=== PATIENT | male | born 1935 | race Caucasian/White ===

== ENCOUNTER 2017-10-09 10:43 | Day surgery (SDC) | payer MEDICARE, BC ==
[~2017-10-09 10:43] MED LIST: Bupivacaine 0.25%/EPINEPHrine 1:200,000 10 ML SDV INJECT ONE; Bupivacaine 25%/EPINEPHrine/PF 30 ML ONE; Clindamycin Phosphate in D5W 600 MG in Premix Bag 1 BAG IV ONE; Lactated Ringers 1,000 ML IV SCH; Lidocaine 2% 5 ML SDV ONE; Midazolam 1 MG/ML 2 ML SDV ONE; Ondansetron 4 MG/2 ML SDV ONE; Propofol 200 MG/20 ML SDV ONE; fentaNYL 100 MCG/2 ML SDV ONE
[2017-10-09] MEDS ORDERED: Clindamycin Phosphate in D5W 50 ML ONE (11:42)
[2017-10-09] MEDS ORDERED: Albuterol/Ipratropium 3.0-0.5 MG/3 ML Neb Soln NEB ONE (11:42)
[2017-10-09] MEDS ORDERED: Dexamethasone 4 MG/ML 5 ML MDV ONE (12:19)
--- NOTE | 2017-10-09 12:23 | PCM.PREANE ---
Preanesthetic Assessment - Anesthesia/Transfusion/Family Hx Anesthesia History: Prior Anesthesia Without Reaction Family History of Anesthesia Reaction: No Transfusion History: Prior Transfusion Without Reaction Intubation History: Unknown - Review of Systems General: No Symptoms Pulmonary: Wheezing Cardiovascular: No Symptoms Gastrointestinal: No Symptoms Neurological: No Symptoms Other: Reports: None - Physical Assessment O2 Sat by Pulse Oximetry: 94 Respiratory Rate: 20 Vital Signs: Last Vital Signs Temp 36.7 C 10/09/17 11:47 Pulse 82 10/09/17 11:47 Resp 20 10/09/17 11:47 BP 140/76 10/09/17 11:47 Pulse Ox 94 L 10/09/17 11:47 Height: 1.68 m Weight: 74.843 kg ASA Class: 3 Mental Status: Alert & Oriented x3 Airway Class: Mallampati = 2 Dentition: Reports: Dentures (upper and lower) Thyro-Mental Finger Breadths: 3 Mouth Opening Finger Breadths: 3 ROM/Head Extension: Limited/Partial Lungs: Wheezing, Other (SOB) Cardiovascular: Regular Rhythm - Allergies Allergies/Adverse Reactions: Allergies Allergy/AdvReac Type Severity Reaction Status Date / Time Penicillins Allergy Itching Verified 10/07/17 13:16 - Blood Blood Available: No - Anesthesia Plan Pre-Op Medication Ordered: None - Acknowledgements Anesthesia Type Planned: General Anesthesia Pt an Appropriate Candidate for the Planned Anesthesia: Yes Alternatives and Risks of Anesthesia Discussed w Pt/Guardian: Yes Pt/Guardian Understands and Agrees with Anesthesia Plan: Yes PreAnesthesia Questionnaire HEENT History: Reports: Hard of Hearing, Other (See Below) Other HEENT History: uses reading glasses, has chronic conjunctivitis, has upper and lower dentures, has bilateral hearing aides Cardiovascular History: Reports: CAD, High Cholesterol Respiratory History: Reports: COPD, SOB Gastrointestinal History: Reports: GERD Musculoskeletal History: Reports: Fracture, Osteoarthritis (left hip) Other Musculoskeletal History: hx of fx left ankle Neurological History: Reports: Migraines Other Neuro History: hx of cluster headaches- none for 10 years Hematologic History: Reports: Blood Transfusion(s) - Past Surgical History Head Surgeries/Procedures: Reports: None Cardiovascular Surgical History: Reports: Coronary Artery Bypass Other Cardiovascular Surgeries/Procedures: CABG x5 vessels-"many many years ago " Neurological Surgical History: Reports: Laminectomy, Lumbar Spine - SUBSTANCE USE Smoking Status *Q: Current Every Day Smoker Tobacco Use Within Last Twelve Months: Cigarettes Days Per Week of Alcohol Use: 0 Recreational Drug Use History: No - HOME MEDS Home Medications: Home Meds Clotrimazole/Betamethasone Dip [Lotrisone Cream] 1 dose TOP BID PRN 05/20/14 [ History] Omeprazole [priLOSEC OTC] 20 mg PO DAILY 05/20/14 [History] Simvastatin [Zocor] 40 mg PO BEDTIME 05/20/14 [History] Aspirin/Calcium Carbonate/Mag [Aspirin Buffered] 325 mg PO DAILY 10/07/17 [ History] Erythromycin Base [Erythromycin 0.5% Ophth Oint] 1 dose TOP BEDTIME 10/07/17 [ History] - CURRENT (IN HOUSE) MEDS Current Meds: Current Medications Lactated Ringer's (Ringers, Lactated) 1,000 mls @ 125 mls/hr IV ASDIRECTED [facility] Last Admin: 10/09/17 11:49 Dose: 125 mls/hr Discontinued Medications Albuterol/Ipratropium (Duoneb 3.0-0.5 Mg/3 Ml) 3 ml NEB ONETIME ONE Stop: 10/09/17 11:43 Last Admin: 10/09/17 11:53 Dose: 3 ml Bupivacaine HCl/Epinephrine Bitart (Marcaine 0.25%/Epinephrine 1:200,000) 10 ml INJECT ONETIME ONE Stop: 10/09/17 08:01 Dexamethasone (Dexamethasone) Confirm Administered Dose 20 mg .ROUTE .STK-MED ONE Stop: 10/09/17 12:20 Fentanyl (Sublimaze) Confirm Administered Dose 100 mcg .ROUTE .STK-MED ONE Stop: 10/09/17 07:24 Clindamycin Phosphate 600 mg/ (Premix) 50 mls @ 150 mls/hr IV ONETIME ONE Stop: 10/09/17 08:19 Last Admin: 10/09/17 11:49 Dose: 150 mls/hr Bupivacaine HCl/Epinephrine Bitart (Sensorc Mpf 0.25%-Epi 1:[id number]) Confirm Administered Dose 30 mls @ as directed .ROUTE .STK-MED ONE Stop: 10/09/17 07:30 Clindamycin Phosphate (Cleocin In D5w) Confirm Administered Dose 50 mls @ as directed .ROUTE .STK-MED ONE Stop: 10/09/17 11:43 Lidocaine (Xylocaine-Mpf 2%) Confirm Administered Dose 5 ml .ROUTE .STK-MED ONE Stop: 10/09/17 07:25 Midazolam HCl (Versed 1 Mg/Ml) Confirm Administered Dose 2 mg .ROUTE .STK-MED ONE Stop: 10/09/17 07:25 Ondansetron HCl (Zofran) Confirm Administered Dose 4 mg .ROUTE .STK-MED ONE Stop: 10/09/17 07:25 Propofol (Diprivan 20 Ml) Confirm Administered Dose 200 mg .ROUTE .STK-MED ONE Stop: 10/09/17 07:24
[2017-10-09] MEDS ORDERED: fentaNYL 100 MCG/2 ML SDV ONE (13:17)
[2017-10-09 14:33] VITALS: BP 114/71
--- NOTE | 2017-10-09 14:41 | PCM.OPNOTE ---
- General Post-Op/Procedure Note Date of Surgery/Procedure: 10/09/17 Operative Procedure(s): excision of left nose lesion, benign 2cm with local transposition flap closure 2x1cm. exicison of right posterior ear cyst with 2cm simple closure Pre Op Diagnosis: left nose and right postauricular lesions Post-Op Diagnosis: Same Anesthesia Technique: General LMA, Local Primary Surgeon: Carey Sauer Storage Garage Manager: Laura Dent Role of Storage Garage Manager: retraction, prepping, draping and closure assistance. Complications: None Condition: Good Free Text/Narrative:: Intake & Output 10/08/17 10/09/17 10/09/17 23:59 07:59 15:59 Intake Total 800 Balance 800
--- NOTE | 2017-10-09 15:08 | PCM48HPAN ---
Post Anesthesia Note - EVALUATION WITHIN 48HRS OF ANESTHETIC Vital Signs in Normal Range: Yes Patient Participated in Evaluation: Yes Respiratory Function Stable: Yes Airway Patent: Yes Cardiovascular Function Stable: Yes Hydration Status Stable: Yes Pain Control Satisfactory: Yes Nausea and Vomiting Control Satisfactory: Yes Mental Status Recovered: Yes Resp Rate: 15 - COMMENTS/OBSERVATIONS Free Text/Narrative:: no anesthesia problems
--- NOTE | 2017-10-09 16:49 | OR ---
SURGEON: JOSE SHERIDAN MD DATE OF PROCEDURE: 10/09/2017 PREOPERATIVE DIAGNOSIS: Left nose and right postauricular lesion. POSTOPERATIVE DIAGNOSIS: Left nose and right postauricular lesion. PROCEDURES: 1. Excision of left nose lesion, benign 2 cm with local transposition flap closure of 2 x 1 cm. 2. Excision of right posterior ear cyst with 2 cm simple closure. MARKETING EXECUTIVE: PREETHI Smith REASON FOR MARKETING EXECUTIVE: Retraction, prepping, draping, and closure assistance. ANESTHESIA: General LMA local. INDICATIONS: Mr. Humphrey is an 82-year-old gentleman with a lesion on the left nose and right postauricular area. The postauricular lesion appears to be cystic in nature and has some atypical features. The left nose lesion appears to be actinic damage in a setting of an underlying either inflammatory process versus underlying skin cancer involvement. We discussed risks and benefits of excision with him and he is in agreement to proceed. Risks were including, but not limited to, bleeding, infection, damage to underlying or overlying structures, possible need for future interventions, possible scarring. PROCEDURE IN DETAIL: After informed consent was obtained and placed on the chart, the patient was brought to the operating theater and laid in the supine position. After adequate general LMA anesthesia was obtained, the area was prepped and draped, a time-out was completed to confirm side and site. Attention was then paid to excision of both lesions. The left nose alar lesion was excised for a total length of 2 cm x 1 cm and meticulous hemostasis was obtained. A marking stitch was placed at 12 o'clock and this was sent for frozen section. Frozen sections returned as likely benign actinic keratosis in an underlying inflammatory cyst. Meticulous hemostasis was obtained. Local transposition flap was designed for the nasolabial fold area measuring 2 x 1 cm. This was then elevated, transposed into place and secured in place using deep 4- 0 Monocryl stitches and a running 5-0 Prolene for the skin. Once secured in place, it was dressed with bacitracin. Attention was then paid to the right posterior ear lesion and this was excised in an elliptical fashion for a total of 2 x 0.7 cm and was meticulously hemostased and sent for pathology. The wound was then closed using deep 4-0 Monocryl stitch and a running 5-0 chromic for the skin. The patient tolerated this well. All counts and needles were correct at the end of the case. This was also dressed with bacitracin. FOLLOWUP INSTRUCTIONS: The patient tolerated the procedure well. All counts, needles were correct at the end of the case. He will follow up with us in clinic in approximately 1 week, sooner if any problems, questions, or concerns. [id number] medications for pain control if needed. HEGGTFIDE / CARLOS /[id number]
== END 2017-10-09 14:55 | disposition home or self-care (01) ==
LOC: MW.SDS 10:43
PROVIDERS: ATTEND Plastic Surgery
DX: L73.8 Other specified follicular disorders (principal); I25.10 Atherosclerotic heart disease of native coronary artery without angina pectoris; E78.00 Pure hypercholesterolemia, unspecified; J44.9 Chronic obstructive pulmonary disease, unspecified; K21.9 Gastro-esophageal reflux disease without esophagitis; Z95.1 Presence of aortocoronary bypass graft; Z98.890 Other specified postprocedural states; Z79.899 Other long term (current) drug therapy
CPT/HCPCS: 11442; 14060; 88305; 88331; 94640; J1100; J2405; J3010; J7120; 00300; J2250; J2704

== ENCOUNTER 2018-07-21 07:29 | Day surgery (SDC) | payer MEDICARE, BC ==
[2018-07-21] MEDS ORDERED: Lidocaine 2% 5 ML SDV ONE (07:43)
[2018-07-21] MEDS ORDERED: fentaNYL 100 MCG/2 ML SDV ONE (07:44)
[2018-07-21] MEDS ORDERED: Propofol 200 MG/20 ML SDV ONE (07:44)
[2018-07-21] MEDS ORDERED: Tetracaine HCl/PF 0.5% 4 ML Bottle ONE (07:48)
[2018-07-21] MEDS ORDERED: Dexamethasone/Tobramycin 0.1-0.3% Ophth Oint 3.5 GM Tube ONE (07:48)
[2018-07-21] MEDS ORDERED: Bupivacaine 25%/EPINEPHrine/PF 30 ML ONE (07:48)
[2018-07-21] MEDS ORDERED: Clindamycin Phosphate in D5W 600 MG in Premix Bag 1 BAG IV ONE ×2 (08:00)
[2018-07-21] MEDS ORDERED: traMADol 50 MG Tab PO PRN (08:00)
[2018-07-21] MEDS ORDERED: Bupivacaine 0.25%/EPINEPHrine 1:200,000 10 ML SDV INJECT ONE (08:00)
[2018-07-21] MEDS ORDERED: Lactated Ringers 1,000 ML IV SCH (08:00)
[2018-07-21] MEDS ORDERED: Dexamethasone/Tobramycin 0.1-0.3% Ophth Oint 3.5 GM Tube EYEBOTH SCH (08:00)
[2018-07-21] MEDS ORDERED: Albuterol 0.083% 2.5 MG/3 ML Neb Soln ONE (08:27)
[2018-07-21] MEDS ORDERED: Albuterol 0.083% 2.5 MG/3 ML Neb Soln NEB SCH (08:30)
--- NOTE | 2018-07-21 08:30 | PCM.PREANE ---
Preanesthetic Assessment - Procedure Proposed Procedure: bilateral blepharoplasties - Anesthesia/Transfusion/Family Hx Anesthesia History: Prior Anesthesia Without Reaction (back surgeries x 2, CABG- 5 vessels in z276--XM without problems.) Family History of Anesthesia Reaction: No Transfusion History: Prior Transfusion Without Reaction (CABG 1990) Intubation History: Unknown - Review of Systems Pulmonary: Other (copd from smoking) Cardiovascular: Other (increased cholesterol. History of CAD--CABG in l991 for "fatigue" with excellent results. No chest pain, no palpitations, no fainting or dizzy spells, per patient.) Gastrointestinal: Other (GERD at night. Takes prilosec which resolves all symptoms durng the day) Neurological: Headache (history of migraine and cluster headaches. Hard of Hearing.) Other: Reports: None (Daily ETOH, chronic conjunctivitis, DJD) - Physical Assessment NPO Status Date: 07/21/18 NPO Status Time: 00:00 Pulse: 60 O2 Sat by Pulse Oximetry: 97 Respiratory Rate: 22 Blood Pressure: 134/61 Temperature: 97.2 C Height: 1.68 m Weight: 77.564 kg ASA Class: 3 Mental Status: Alert & Oriented x3 Airway Class: Mallampati = 1 Dentition: Reports: Dentures (upper and lower dentures) Thyro-Mental Finger Breadths: 2 Mouth Opening Finger Breadths: 3 ROM/Head Extension: Limited/Partial Lungs: Decreased Breath Sounds Cardiovascular: Regular Rate, Regular Rhythm, No Murmurs, Irregular Rhythm ( irregular rhythm. EKG tracing at bedside monitor shows NSR with either PVCs or PACs-12 lead EKG ordered now.l) - Lab Values: none - Imaging/EKG Impressions: 12 lead EKG ordered now: NSR with PVCs, Left bundle branch block, flat/biphasic T waves most leads (partly due to LBBB) - Allergies Allergies/Adverse Reactions: Allergies Allergy/AdvReac Type Severity Reaction Status Date / Time Penicillins Allergy Itching Verified 07/19/18 17:16 - Blood Blood Available: No Product(s) Available: None - Anesthesia Plan Pre-Op Medication Ordered: None - Acknowledgements Anesthesia Type Planned: MAC (pre op albuterol neb ordered and pre op EKG ordered. No blood work.) Pt an Appropriate Candidate for the Planned Anesthesia: Yes Alternatives and Risks of Anesthesia Discussed w Pt/Guardian: Yes Pt/Guardian Understands and Agrees with Anesthesia Plan: Yes PreAnesthesia Questionnaire HEENT History: Reports: Cataract, Hard of Hearing, Other (See Below) Other HEENT History: uses reading glasses, has chronic conjunctivitis, has upper and lower dentures, has bilateral hearing aides Cardiovascular History: Reports: CAD, High Cholesterol Respiratory History: Reports: COPD, SOB Other Respiratory History: does not use inhalers for COPD Gastrointestinal History: Reports: GERD Genitourinary History: Reports: None Musculoskeletal History: Reports: Fracture, Osteoarthritis Other Musculoskeletal History: hx of fx left ankle Neurological History: Reports: Migraines Other Neuro History: hx of cluster headaches- none for 10 years Psychiatric History: Reports: None Endocrine/Metabolic History: Reports: None Hematologic History: Reports: Blood Transfusion(s) Immunologic History: Reports: None Oncologic (Cancer) History: Reports: None Dermatologic History: Reports: Other (See Below) Other Dermatologic History: has "jock itch" - Past Surgical History Head Surgeries/Procedures: Reports: None HEENT Surgical History: Reports: Cataract Surgery Cardiovascular Surgical History: Reports: Coronary Artery Bypass Other Cardiovascular Surgeries/Procedures: CABG x5 vessels-"many many years ago " Neurological Surgical History: Reports: Laminectomy, Lumbar Spine - SUBSTANCE USE Smoking Status *Q: Current Every Day Smoker Tobacco Use Within Last Twelve Months: Cigarettes Days Per Week of Alcohol Use: 7 Number of Drinks Per Day: 2 Total Drinks Per Week: 14 Recreational Drug Use History: No - HOME MEDS Home Medications: Home Meds Clotrimazole/Betamethasone Dip [Lotrisone Cream] 1 dose TOP BID PRN 05/20/14 [ History] Omeprazole [priLOSEC OTC] 20 mg PO DAILY 05/20/14 [History] Simvastatin [Zocor] 40 mg PO BEDTIME 05/20/14 [History] Aspirin/Calcium Carbonate/Mag [Aspirin Buffered] 325 mg PO DAILY 10/07/17 [ History] - CURRENT (IN HOUSE) MEDS Current Meds: Current Medications Albuterol (Proventil Neb Soln) 2.5 mg NEB .ONCE JAMIE Lactated Ringer's (Ringers, Lactated) 1,000 mls @ 125 mls/hr IV ASDIRECTED JAMIE Tobramycin/Dexamethasone (Tobradex Ophth Oint) 1 gm EYEBOTH Q4H JAMIE Tramadol HCl (Ultram) 50 mg PO Q4H PRN PRN Reason: Pain Discontinued Medications Bupivacaine HCl/Epinephrine Bitart (Marcaine 0.25%/Epinephrine 1:200,000) 10 ml INJECT ONETIME ONE Stop: 07/21/18 08:01 Fentanyl (Sublimaze) Confirm Administered Dose 100 mcg .ROUTE .STK-MED ONE Stop: 07/21/18 07:45 Clindamycin Phosphate 600 mg/ (Premix) 50 mls @ 150 mls/hr IV ONETIME ONE Stop: 07/21/18 08:19 Bupivacaine HCl/Epinephrine Bitart (Sensorc Mpf 0.25%-Epi 1:[id number]) Confirm Administered Dose 30 mls @ as directed .ROUTE .STK-MED ONE Stop: 07/21/18 07:49 Lidocaine (Xylocaine-Mpf 2%) Confirm Administered Dose 5 ml .ROUTE .STK-MED ONE Stop: 07/21/18 07:44 Propofol (Diprivan 20 Ml) Confirm Administered Dose 400 mg .ROUTE .STK-MED ONE Stop: 07/21/18 07:45 Tetracaine HCl (Tetracaine 0.5% Steri-Unit Archana) Confirm Administered Dose 4 ml .ROUTE .STK-MED ONE Stop: 07/21/18 07:49 Tobramycin/Dexamethasone (Tobradex Ophth Oint) Confirm Administered Dose 3.5 gm .ROUTE .STK-MED ONE Stop: 07/21/18 07:49
--- NOTE | 2018-07-21 11:35 | PCM.POSTAN ---
POST ANESTHESIA ASSESSMENT - MENTAL STATUS Mental Status: Alert, Oriented - VITAL SIGNS Pulse Rate: 63 SaO2: 96 Resp Rate: 20 Blood Pressure: 125/61 - RESPIRATORY Respiratory Status: Respiratory Rate WNL, Airway Patent, O2 Saturation Stable - CARDIOVASCULAR CV Status: Pulse Rate WNL, Blood Pressure Stable - GASTROINTESTINAL GI Status: No Symptoms - PAIN Pain Score: 0 - POST OP HYDRATION Hydration Status: Adequate & Stable - OBSERVATIONS Free Text/Narrative:: patient doing very well. Had MAC for blephs. EKG intraop was NSR. No respiratory or cardiac issues
--- NOTE | 2018-07-21 11:38 | PCM48HPAN ---
Post Anesthesia Note - EVALUATION WITHIN 48HRS OF ANESTHETIC Vital Signs in Normal Range: Yes Patient Participated in Evaluation: Yes Respiratory Function Stable: Yes Airway Patent: Yes Cardiovascular Function Stable: Yes Hydration Status Stable: Yes Pain Control Satisfactory: Yes Nausea and Vomiting Control Satisfactory: Yes Pulse Rate: 63 SaO2: 95 Resp Rate: 20 Temperature: 97.2 C Blood Pressure: 125/61 - COMMENTS/OBSERVATIONS Free Text/Narrative:: doing very well. Eating and drinking in Phase II. Son has been called to bring him home. No complaints regarding breathing or dizzziness or chest pain or palpitations etc.
[2018-07-21 13:14] VITALS: BP 130/61
--- NOTE | 2018-07-27 08:15 | PCM.OPNOTE ---
- General Post-Op/Procedure Note Date of Surgery/Procedure: 07/21/18 Operative Procedure(s): external levator advancement for bilateral upper eyelid ptosis Pre Op Diagnosis: bilateral upper eyelid ptosis obstructing vision Post-Op Diagnosis: Same Anesthesia Technique: Local, MAC Primary Surgeon: Carey Sauer Crutch Maker: Laura Dent Complications: None Condition: Good Free Text/Narrative:: [id number]
--- NOTE | 2018-07-28 07:20 | OR ---
SURGEON: JOSE SHERIDAN MD DATE OF PROCEDURE: 07/21/2018 PREOPERATIVE DIAGNOSIS: Bilateral upper eyelid ptosis obstructing vision. POSTOPERATIVE DIAGNOSIS: Bilateral upper eyelid ptosis obstructing vision. PROCEDURE: External levator advancement for bilateral upper eyelid ptosis. JEWEL FLAT SURFACER: PREETHI Smith REASON FOR AND ROLE OF JEWEL FLAT SURFACER: Retraction, prepping, draping, positioning and closure assistance. INDICATIONS: Mr. Humphrey is an 82-year-old gentleman seen today for bilateral upper eyelid ptosis that is obstructing his vision. He has significant compromise of daily function. Risks and benefits were discussed with him including, but not limited to, bleeding, infection, damage to the overlying and underlying structures, possible need for future interventions, possible scarring. PROCEDURE IN DETAIL: After informed consent was obtained and placed on the chart, the patient was brought to the operating theater and laid in supine position. After adequate local MAC anesthesia was obtained, the area was marked and prepped and draped in normal fashion. Local anesthesia was infiltrated into the area for meticulous hemostasis as well as pain control. Once adequately marked and anesthetized, attention was then paid to excision of the excess upper eyelid skin in an elliptical fashion. Meticulous hemostasis was obtained of the underlying musculature, and then dissection was carried through the musculature until location of the levator aponeurosis. Once adequately located, this was dissected and the superior tarsus was also dissected and located. The levator aponeurosis was advanced approximately 1 cm on bilateral upper eyelids and sutured in place using 4-0 clear Prolene suture to the superior tarsus. Care was taken to make sure the bite through the tarsus did not go through and through and with partial thickness. Once this was completed, the conjunctiva was evaluated to be intact without suture puncture. Once this was completed, attention was then paid to meticulous hemostasis. The muscle layer was then closed with a running 4-0 Monocryl and the skin was then closed with a single deep Monocryl and a running 6-0 Prolene for the skin. These were Steri-Stripped in place. The symmetry procedure was completed on the other side and corneal protectors were used at all times with TobraDex ointment for lubrication and to prevent irritation of the eye. Tetracaine was used for anesthesia of the eye prior to placement. The corneal protectors were removed at the end of the case and the ends of the sutures were Steri-Stripped in place. The patient tolerated this well and all counts and needles were correct at the end of the case. The wound was dressed with TobraDex ointment. FOLLOWUP INSTRUCTIONS: The patient will see us in clinic in approximately 1 week, sooner if any problems, questions, or concerns. Excellent symmetry at the end of the case. He was given a prescription for pain control. HEGGTHE / CARLOS /[id number]
== END 2018-07-21 12:00 | disposition home or self-care (01) ==
LOC: MW.SDS 07:29
PROVIDERS: ATTEND Plastic Surgery
DX: H02.403 Unspecified ptosis of bilateral eyelids (principal); J44.9 Chronic obstructive pulmonary disease, unspecified; F17.210 Nicotine dependence, cigarettes, uncomplicated; K21.9 Gastro-esophageal reflux disease without esophagitis; I25.10 Atherosclerotic heart disease of native coronary artery without angina pectoris; E78.00 Pure hypercholesterolemia, unspecified; Z79.82 Long term (current) use of aspirin; Z79.899 Other long term (current) drug therapy; Z95.1 Presence of aortocoronary bypass graft; Z88.0 Allergy status to penicillin
CPT/HCPCS: 67904; 93005; 94640; A9270; J2704; J3010; J3490; J7120; 00103

== ENCOUNTER 2021-05-10 10:31 | Inpatient (IN) | payer MEDICARE, BC ==
[2021-05-10] MEDS ORDERED: Sodium Chloride 0.9% 10 ML Syringe FLUSH PRN (10:46)
[2021-05-10] MEDS ORDERED: Sodium Chloride 0.9% 2.5 ML Syringe FLUSH PRN (10:46)
[2021-05-10] MEDS ORDERED: methylPREDNISolone Sodium Succinate 125 MG/2 ML SDV IVPUSH ONE (10:47)
[2021-05-10] MEDS ORDERED: Albuterol/Ipratropium 3.0-0.5 MG/3 ML Neb Soln NEB ONE ×2 (10:48→21:00)
[2021-05-10] MEDS ORDERED: Levofloxacin/Dextrose 5%-Water 500 MG in Premix Bag 1 BAG IV ONE (10:48)
--- NOTE | 2021-05-10 10:59 | EDM.PDOC ---
ED HPI GENERAL MEDICAL PROBLEM - General Chief Complaint: Respiratory Problem Stated Complaint: SOB Time Seen by Provider: 05/10/21 10:42 - History of Present Illness INITIAL COMMENTS - FREE TEXT/NARRATIVE: 85-year-old male history of COPD presents to the emergency department complaining of shortness of breath. No chest pain. No history of blood clots. Patient is Covid vaccinated. No other medical information available to secondary to patient's clinical condition - Related Data Allergies Allergy/AdvReac Type Severity Reaction Status Date / Time Penicillins Allergy Itching Verified 05/10/21 10:47 Home Meds: Home Meds Clotrimazole/Betamethasone Dip [Lotrisone Cream] 1 dose TOP BID PRN 05/20/14 [History] Omeprazole [priLOSEC OTC] 20 mg PO DAILY 05/20/14 [History] Simvastatin [Zocor] 40 mg PO BEDTIME 05/20/14 [History] Aspirin/Calcium Carbonate/Mag [Aspirin Buffered] 325 mg PO DAILY 10/07/17 [History] Dexamethasone/Tobramycin [Tobradex Ophth Oint] 1 gm EYEBOTH Q4H tube 07/21/18 [Rx] traMADol [Ultram] 50 mg PO Q4H PRN #30 tablet 07/21/18 [Rx] Past Medical History HEENT History: Reports: Cataract, Hard of Hearing, Other (See Below) Other HEENT History: uses reading glasses, has chronic conjunctivitis, has upper and lower dentures, has bilateral hearing aides Cardiovascular History: Reports: CAD, High Cholesterol Respiratory History: Reports: COPD, SOB Other Respiratory History: does not use inhalers for COPD Gastrointestinal History: Reports: GERD Genitourinary History: Reports: None Musculoskeletal History: Reports: Fracture, Osteoarthritis Other Musculoskeletal History: hx of fx left ankle Neurological History: Reports: Migraines Other Neuro History: hx of cluster headaches- none for 10 years Psychiatric History: Reports: None Endocrine/Metabolic History: Reports: None Hematologic History: Reports: Blood Transfusion(s) Immunologic History: Reports: None Oncologic (Cancer) History: Reports: None Dermatologic History: Reports: None Other Dermatologic History: has "jock itch" - Infectious Disease History Infectious Disease History: Reports: Chicken Pox, Measles - Past Surgical History Head Surgeries/Procedures: Reports: None HEENT Surgical History: Reports: Cataract Surgery Cardiovascular Surgical History: Reports: Coronary Artery Bypass Other Cardiovascular Surgeries/Procedures: CABG x5 vessels-"many many years ago" GI Surgical History: Reports: None Neurological Surgical History: Reports: Laminectomy, Lumbar Spine Social & Family History - Family History Family Medical History: No Pertinent Family History - Tobacco Use Tobacco Use Status *Q: Current Every Day Tobacco User Years of Tobacco use: 70 Packs/Tins Daily: 1 - Caffeine Use Caffeine Use: Reports: Coffee - Recreational Drug Use Recreational Drug Use: No ED ROS GENERAL - Review of Systems Review Of Systems: Unable To Obtain Reason Not Obtained: clinical condition ED EXAM, GENERAL - Physical Exam Exam: See Below Free Text/Narrative:: CONSTITUTIONAL: Appearing. Moderate distress SKIN: Warm, dry, and intact without rash HENT: Normocephalic, atraumatic, PULMONARY: Air exchange. Bilateral wheeze CARDIOVASCULAR: regular rate, No murmur, rubs, or gallops GASTROINTESTINAL: soft, nondistended, nontender NEUROLOGIC: normal speech, II-XII intact. light touch/5/5 power equal and symmetric in upper and lower extremities without deficit MUSCULOSKELETAL: no gross deformities, atraumatic. No lower extremity edema PSYCHIATRIC: normal mood and affect #1 Interpretation Time: 10:39 EKG Interpretation Comments: 86, normal sinus rhythm with left bundle branch block. Negative modified sgarbossa criteria. Intermittent PVC Course - Vital Signs Text/Narrative:: differential diagnosis: PE, pneumonia, COPD, covid, CHF, other Patient presents to the emergency department with shortness of breath. Patient with significant difficulty breathing and hypoxia but improved with breathing treatment and steroids in the emergency department. CT scan pending to elucidate mass and rule out PE. Patient does have a left facial droop but this very well could be longstanding. The patient clearly is here for shortness of breath he states that the rest of his neurologic exam is nonfocal. Head CT is negative and there could be consideration of MRI during inpatient hospitalization but otherwise breathing treatments steroids and respiratory s upport as needed 11:10am called to the bedside because the nurse noticed a facial droop on the left when she was starting the breathing treatments. There is a facial droop on the left. Patient does not complain of headache. Otherwise patient is able to talk and describe context at this point without confusion. Light touch 5 out of 5 power bilateral equal and symmetric in upper and lower extremity throughout without deficit. There is no neglect, patient understands where he is at is alert and oriented and just left-sided facial droop is all that is seen. I did call the contact which is I believe, the patient's son. He states he does not know of any left-sided facial droop and last time he saw the patient was 9 or 10 months ago. The patient himself is not aware of any facial droop when he is here for complaints of shortness of breath Last Recorded V/S: Last Vital Signs Temp 36.4 C 05/10/21 10:33 Pulse 86 05/10/21 12:42 Resp 26 H 05/10/21 10:33 BP 122/53 L 05/10/21 12:42 Pulse Ox 94 L 05/10/21 12:42 - Orders/Labs/Meds Orders: Active Orders 24 hr Category Date Time Status Cardiac Monitoring [RC] . DIRECTED Care 05/10/21 10:46 Active Pulse Oximetry [RC] ASDIRECTED Care 05/10/21 10:46 Active RT Aerosol Therapy [RC] ASDIRECTED Care 05/10/21 10:48 Active Ang Chest [CT] Stat Exams 05/10/21 12:10 Ordered BLOOD GAS ARTERIAL [BG] Stat Lab 05/10/21 10:46 Ordered CULTURE BLOOD [BC] Stat Lab 05/10/21 12:20 Results CULTURE BLOOD [BC] Stat Lab 05/10/21 12:37 Results CULTURE URINE [MREF] Stat Lab 05/10/21 13:10 Received Sodium Chloride 0.9% [Saline Flush] Med 05/10/21 10:46 Active 10 ml FLUSH ASDIRECTED PRN Sodium Chloride 0.9% [Saline Flush] Med 05/10/21 10:46 Active 2.5 ml FLUSH ASDIRECTED PRN Blood Culture x2 Reflex Set [OM.PC] Stat Oth 05/10/21 10:46 Ordered Saline Lock Insert [OM.PC] Stat Oth 05/10/21 10:46 Ordered Medication Orders Sodium Chloride (Sodium Chloride 0.9% 10 Ml Syringe) 10 ml FLUSH ASDIRECTED PRN PRN Reason: Keep Vein Open Last Admin: 05/10/21 10:59 Dose: 10 ml Documented by: SEWATIF Sodium Chloride (Sodium Chloride 0.9% 2.5 Ml Syringe) 2.5 ml FLUSH ASDIRECTED PRN PRN Reason: Keep Vein Open Last Admin: 05/10/21 10:58 Dose: 2.5 ml Documented by: EMILIE Labs: Laboratory Tests 05/10/21 05/10/21 05/10/21 Range/Units 10:43 10:50 12:20 WBC 12.35 H (4.0-11.0) K/uL RBC 5.55 (4.50-5.90) M/uL Hgb 16.4 (13.0-17.0) g/dL Hct 52.6 H (38.0-50.0) % MCV 94.8 (80.0-98.0) fL MCH 29.5 (27.0-32.0) pg MCHC 31.2 (31.0-37.0) g/dL RDW Std Deviation 51.8 (28.0-62.0) fl RDW Coeff of Saú[place] 15 (11.0-15.0) % Plt Count 308 (150-400) K/uL MPV 11.10 (7.40-12.00) fL Neut % (Auto) 72.2 (48.0-80.0) % Lymph % (Auto) 18.9 (16.0-40.0) % [place] % (Auto) 8.1 (0.0-15.0) % Eos % (Auto) 0.6 (0.0-7.0) % Baso % (Auto) 0.2 (0.0-1.5) % Neut # (Auto) 8.9 H (1.4-5.7) K/uL Lymph # (Auto) 2.3 (0.6-2.4) K/uL [place] # (Auto) 1.0 H (0.0-0.8) K/uL Eos # (Auto) 0.1 (0.0-0.7) K/uL Baso # (Auto) 0.0 (0.0-0.1) K/uL Nucleated RBC % 0.0 /100WBC Nucleated RBCs # 0 K/uL INR Sodium (136-148) mmol/L Potassium (3.5-5.1) mmol/L Chloride (98-107) mmol/L Carbon Dioxide (21.0-32.0) mmol/L BUN (7.0-18.0) mg/dL Creatinine (0.8-1.3) mg/dL Est Cr Clr Drug Dosing mL/min Estimated GFR (MDRD) ml/min Glucose (74-106) mg/dL Lactic Acid 1.5 (0.4-2.0) mmol/L Calcium (8.5-10.1) mg/dL Total Bilirubin (0.2-1.0) mg/dL AST (15-37) IU/L ALT (14-63) IU/L Alkaline Phosphatase (46-116) U/L Troponin I (0.000-0.056) ng/mL B-Natriuretic Peptide (<100) PG/ML Total Protein (6.4-8.2) g/dL Albumin (3.4-5.0) g/dL Globulin (2.6-4.0) g/dL Albumin/Globulin Ratio (0.9-1.6) Urine Color Urine Appearance Urine pH (5.0-8.0) Ur Specific [place] (1.001-1.035) Urine Protein (NEGATIVE) mg/dL Urine Glucose (UA) (NEGATIVE) mg/dL Urine Ketones (NEGATIVE) mg/dL Urine Occult Blood (NEGATIVE) Urine Nitrite (NEGATIVE) Urine Bilirubin (NEGATIVE) Urine Ictotest Urine Urobilinogen (<2.0) EU/dL Ur Leukocyte Esterase (NEGATIVE) SARS-CoV-2 RNA (STEPHANIE) NEGATIVE (NEGATIVE) 05/10/21 05/10/21 05/10/21 Range/Units 12:20 13:01 13:10 WBC (4.0-11.0) K/uL RBC (4.50-5.90) M/uL Hgb (13.0-17.0) g/dL Hct (38.0-50.0) % MCV (80.0-98.0) fL MCH (27.0-32.0) pg MCHC (31.0-37.0) g/dL RDW Std Deviation (28.0-62.0) fl RDW Coeff of Saúl (11.0-15.0) % Plt Count (150-400) K/uL MPV (7.40-12.00) fL Neut % (Auto) (48.0-80.0) % Lymph % (Auto) (16.0-40.0) % [place] % (Auto) (0.0-15.0) % Eos % (Auto) (0.0-7.0) % Baso % (Auto) (0.0-1.5) % Neut # (Auto) (1.4-5.7) K/uL Lymph # (Auto) (0.6-2.4) K/uL [place] # (Auto) (0.0-0.8) K/uL Eos # (Auto) (0.0-0.7) K/uL Baso # (Auto) (0.0-0.1) K/uL Nucleated RBC % /100WBC Nucleated RBCs # K/uL INR 1.11 Sodium (136-148) mmol/L Potassium (3.5-5.1) mmol/L Chloride (98-107) mmol/L Carbon Dioxide (21.0-32.0) mmol/L BUN (7.0-18.0) mg/dL Creatinine (0.8-1.3) mg/dL Est Cr Clr Drug Dosing mL/min Estimated GFR (MDRD) ml/min Glucose (74-106) mg/dL Lactic Acid (0.4-2.0) mmol/L Calcium (8.5-10.1) mg/dL Total Bilirubin (0.2-1.0) mg/dL AST (15-37) IU/L ALT (14-63) IU/L Alkaline Phosphatase (46-116) U/L Troponin I (0.000-0.056) ng/mL B-Natriuretic Peptide 576 H (<100) PG/ML Total Protein (6.4-8.2) g/dL Albumin (3.4-5.0) g/dL Globulin (2.6-4.0) g/dL Albumin/Globulin Ratio (0.9-1.6) Urine Color YELLOW Urine Appearance CLEAR Urine pH 5.5 (5.0-8.0) Ur Specific [place] >= 1.030 (1.001-1.035) Urine Protein NEGATIVE (NEGATIVE) mg/dL Urine Glucose (UA) NEGATIVE (NEGATIVE) mg/dL Urine Ketones TRACE H (NEGATIVE) mg/dL Urine Occult Blood NEGATIVE (NEGATIVE) Urine Nitrite NEGATIVE (NEGATIVE) Urine Bilirubin SMALL H (NEGATIVE) Urine Ictotest NEGATIVE Urine Urobilinogen 0.2 (<2.0) EU/dL Ur Leukocyte Esterase NEGATIVE (NEGATIVE) SARS-CoV-2 RNA (STEPHANIE) (NEGATIVE) 05/10/21 Range/Units 13:45 WBC (4.0-11.0) K/uL RBC (4.50-5.90) M/uL Hgb (13.0-17.0) g/dL Hct (38.0-50.0) % MCV (80.0-98.0) fL MCH (27.0-32.0) pg MCHC (31.0-37.0) g/dL RDW Std Deviation (28.0-62.0) fl RDW Coeff of Saúl (11.0-15.0) % Plt Count (150-400) K/uL MPV (7.40-12.00) fL Neut % (Auto) (48.0-80.0) % Lymph % (Auto) (16.0-40.0) % [place] % (Auto) (0.0-15.0) % Eos % (Auto) (0.0-7.0) % Baso % (Auto) (0.0-1.5) % Neut # (Auto) (1.4-5.7) K/uL Lymph # (Auto) (0.6-2.4) K/uL [place] # (Auto) (0.0-0.8) K/uL Eos # (Auto) (0.0-0.7) K/uL Baso # (Auto) (0.0-0.1) K/uL Nucleated RBC % /100WBC Nucleated RBCs # K/uL INR Sodium 147 (136-148) mmol/L Potassium 4.6 (3.5-5.1) mmol/L Chloride 105 (98-107) mmol/L Carbon Dioxide 34.5 H (21.0-32.0) mmol/L BUN 24 H (7.0-18.0) mg/dL Creatinine 1.3 (0.8-1.3) mg/dL Est Cr Clr Drug Dosing 41.87 mL/min Estimated GFR (MDRD) 52.3 ml/min Glucose 125 H (74-106) mg/dL Lactic Acid (0.4-2.0) mmol/L Calcium 9.0 (8.5-10.1) mg/dL Total Bilirubin 0.5 (0.2-1.0) mg/dL AST 45 H (15-37) IU/L ALT 42 (14-63) IU/L Alkaline Phosphatase 200 H (46-116) U/L Troponin I < 0.050 (0.000-0.056) ng/mL B-Natriuretic Peptide (<100) PG/ML Total Protein 6.7 (6.4-8.2) g/dL Albumin 2.6 L (3.4-5.0) g/dL Globulin 4.1 H (2.6-4.0) g/dL Albumin/Globulin Ratio 0.6 L (0.9-1.6) Urine Color Urine Appearance Urine pH (5.0-8.0) Ur Specific [place] (1.001-1.035) Urine Protein (NEGATIVE) mg/dL Urine Glucose (UA) (NEGATIVE) mg/dL Urine Ketones (NEGATIVE) mg/dL Urine Occult Blood (NEGATIVE) Urine Nitrite (NEGATIVE) Urine Bilirubin (NEGATIVE) Urine Ictotest Urine Urobilinogen (<2.0) EU/dL Ur Leukocyte Esterase (NEGATIVE) SARS-CoV-2 RNA (STEPHANIE) (NEGATIVE) Meds: Medications Generic Name Dose Route Start Last Admin Trade Name Chineduq PRN Reason Stop Dose Admin Sodium Chloride 10 ml 05/10/21 10:46 05/10/21 10:59 Sodium Chloride 0.9% 10 Ml Syringe FLUSH 10 ml ASDIRECTED PRN Administration Keep Vein Open Sodium Chloride 2.5 ml 05/10/21 10:46 05/10/21 10:58 Sodium Chloride 0.9% 2.5 Ml Syringe FLUSH 2.5 ml ASDIRECTED PRN Administration Keep Vein Open Discontinued Medications Generic Name Dose Route Start Last Admin Trade Name Freq PRN Reason Stop Dose Admin Albuterol/Ipratropium 6 ml 05/10/21 10:48 05/10/21 10:58 Albuterol/Ipratropium 3.0-0.5 Mg/3 Ml Neb Soln NEB 05/10/21 10:49 6 ml ONETIME ONE Administration Levofloxacin/Dextrose 500 mg/ 100 mls @ 100 mls/hr 05/10/21 10:48 05/10/21 10:59 Premix IV 05/10/21 11:47 100 mls/hr ONETIME ONE Administration Methylprednisolone Sodium Succinate 125 mg 05/10/21 10:47 05/10/21 10:59 Methylprednisolone Sodium Succinate 125 Mg/2 Ml Sdv IVPUSH 05/10/21 10:48 125 mg ONETIME ONE Administration Departure - Departure Time of Disposition: 14:53 Disposition: Admitted As Inpatient 65 Condition: Good Clinical Impression: COPD (chronic obstructive pulmonary disease) - Discharge Information Forms: ED Department Discharge Sepsis Event Note (ED) - Evaluation Sepsis Screening Result: No Definite Risk - Focused Exam Vital Signs: Vital Signs Temp Pulse Resp BP Pulse Ox 05/10/21 12:42 86 122/53 L 94 L 05/10/21 12:07 86 99 05/10/21 11:49 87 132/73 100 05/10/21 11:17 103 H 96 05/10/21 10:50 83 147/85 H 96 05/10/21 10:48 93 L 05/10/21 10:33 36.4 C 82 26 H 143/76 H 70 L - My Orders Last 24 Hours: My Active Orders 05/10/21 10:46 Cardiac Monitoring [RC] . DIRECTED Pulse Oximetry [RC] ASDIRECTED BLOOD GAS ARTERIAL [BG] Stat Sodium Chloride 0.9% [Saline Flush] 10 ml FLUSH ASDIRECTED PRN Sodium Chloride 0.9% [Saline Flush] 2.5 ml FLUSH ASDIRECTED PRN Blood Culture x2 Reflex Set [OM.PC] Stat Saline Lock Insert [OM.PC] Stat 05/10/21 10:48 RT Aerosol Therapy [RC] ASDIRECTED 05/10/21 12:10 Ang Chest [CT] Stat 05/10/21 12:20 CULTURE BLOOD [BC] Stat 05/10/21 12:37 CULTURE BLOOD [BC] Stat 05/10/21 13:10 CULTURE URINE [MREF] Stat - Assessment/Plan Last 24 Hours: My Active Orders 05/10/21 10:46 Cardiac Monitoring [RC] . DIRECTED Pulse Oximetry [RC] ASDIRECTED BLOOD GAS ARTERIAL [BG] Stat Sodium Chloride 0.9% [Saline Flush] 10 ml FLUSH ASDIRECTED PRN Sodium Chloride 0.9% [Saline Flush] 2.5 ml FLUSH ASDIRECTED PRN Blood Culture x2 Reflex Set [OM.PC] Stat Saline Lock Insert [OM.PC] Stat 05/10/21 10:48 RT Aerosol Therapy [RC] ASDIRECTED 05/10/21 12:10 Ang Chest [CT] Stat 05/10/21 12:20 CULTURE BLOOD [BC] Stat 05/10/21 12:37 CULTURE BLOOD [BC] Stat 05/10/21 13:10 CULTURE URINE [MREF] Stat
--- NOTE | 2021-05-10 12:01 | CR ---
INDICATION: Chest pain. TECHNIQUE: Chest 1 views. COMPARISON: May 20, 2014. FINDINGS: Cardiovascular and mediastinum: Heart size is in the upper limits of normal. Normal pulmonary vasculature. Lungs and pleural spaces: There is a new 3.7 cm mass opacity in the left lung base. Small right-sided pleural effusion. Remainder of the lungs and pleural spaces are clear. No pneumothorax. Bones and soft tissues: No significant findings. IMPRESSION: 1. 3.7 cm mass opacity in the left lung base is highly suspicious for neoplasm. Further evaluation with CT is warranted. 2. Small right-sided pleural effusion. Dictated by Tucker Phillips MD @ 05/10/2021 12:00:02 PM (Electronically Signed)
--- NOTE | 2021-05-10 12:18 | CT ---
INDICATION: Left-sided facial droop. COMPARISON: None. TECHNIQUE: CT of the head without IV contrast. Coronal and sagittal reconstructions are provided. FINDINGS: No intracranial hemorrhage, mass effect, or evidence of acute infarct. No midline shift. No abnormal extra-axial fluid collections. Mild generalized cerebral and cerebellar volume loss with associated ex vacuo dilation of the lateral ventricles. Mild chronic small vessel ischemic disease. 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 Orbits and extraocular muscles are symmetric. Near complete opacification of the right maxillary sinus and bilateral ethmoid air cells. The mastoid air cells are clear. No acute fracture identified. Soft tissues are unremarkable. IMPRESSION: : 1. No acute intracranial findings. 2. 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 3. Paranasal sinus disease. Please note that all CT scans at this facility use dose modulation, iterative reconstruction, and/or weight-based dosing when appropriate to reduce radiation dose to as low as reasonably achievable. Dictated by Davida Mae MD @ 05/10/2021 12:17:16 PM (Electronically Signed)
[2021-05-10 14:29] LABS: BLOOD UREA NITROGEN,BUN 24 mg/dL (7.0-18.0); CARBON DIOXIDE,CO2 34.5 mmol/L (21.0-32.0); CHLORIDE,CL 105 mmol/L (98-107); GLUCOSE RANDOM 125 mg/dL (74-106); POTASSIUM,K 4.6 mmol/L (3.5-5.1); SODIUM,NA 147 mmol/L (136-148)
[2021-05-10] MEDS ORDERED: Iopamidol 755 MG/ML 500 ML Multipack Bottle IVPUSH STA (16:01)
--- NOTE | 2021-05-10 16:15 | CT ---
INDICATION: Evaluate for pulmonary embolus TECHNIQUE: CT chest pulmonary angiogram acquired with IV contrast. 100 cc Isovue 370 COMPARISON: None FINDINGS: Cardiovascular structures: Normal vascular enhancement of the pulmonary arteries, no sign of pulmonary embolism. Heart size is normal. No sign of aneurysm or dissection in the thoracic aorta. Mediastinum and brit: Centimeter mediastinal adenopathy. Lungs: 2.7 centimeter x 2.7 centimeters spiculated mass left lower lobe highly worrisome for malignancy. Lung atelectasis versus scarring. Pleura and pericardium: No effusions. Chest wall and axilla: No mass or adenopathy. Bones: No significant findings. Upper abdomen: Small hiatal hernia. Cholelithiasis. IMPRESSION: No evidence of pulmonary embolus. 2.7 centimeter x 2.7 centimeter spiculated mass left lower lobe highly worrisome for malignancy. Hiatal hernia. Cholelithiasis. Please note that all CT scans at this facility use dose modulation, iterative reconstruction, and/or weight-based dosing when appropriate to reduce radiation dose to as low as reasonably achievable. Dictated by Ayaan Talbert MD @ 05/10/2021 4:15:06 PM (Electronically Signed)
--- NOTE | 2021-05-10 17:40 | PCM.HP.2 ---
H&P History of Present Illness - General Date of Service: 05/10/21 Admit Problem/Dx: Admission Diagnosis/Problem Admission Diagnosis/Problem COPD, Moderate chronic obstructive pulmonary disease - History of Present Illness Initial Comments - Free Text/Narative: 85-year-old male with h/o CAD, who has smoked 3 packs/day for the last 70 years presented to the ER complaining of worsening shortness of breath and difficulty breathing. Patient states he has had breathing problems for quite some time but is not on any medications for airway disease including inhalers or steroids. Patient states he smokes 1 PPD for the last 70 years. Daughter is at bedside and states he smokes 3 PPD. Denies any home medications except for occasional baby aspirin. Patient has had a COVID vaccine. Upon chart review, patient was admitted on 05/20/2014 for suspected COPD exacerbation. Was started on Advair and albuterol on discharge. Patient denies chest pain, palpitations, fever, chills, lightheadedness, loss of consciousness, abdominal pain, nausea, vomiting, diarrhea or calf pain. No history of DVTs. ER course: Patient presented with difficulty breathing and hypoxia, poor air exchange on exam and wheezing, given steroids. T 36.4. P 86. RR 26. BP 08/05/1953. 94% O2 saturation. EKG pulse 87, NSR, left bundle branch block. Negative modified sgarbossa criteria. Intermittent PVC. Head CT negative. There was concern of left facial droop, likely chronic. WBC 12.35. Hgb 16.4. Platelet 308. Lactic acid 1.5. SARS-CoV-2 negative. INR 1.11. BNP 576. Sodium 147. Potassium 4.6. Chloride 105. Bicarb 34.5. BUN 24. Creatinine 1.2. Glucose 125. Alk phos 200. Troponin negative. UA unremarkable. Patient received Solu-Medrol 125 mg. Levofloxacin. Duo nebs. Past medical history: CAD. CABG x5 in 1991. HLD. COPD, untreated. History of cluster headaches. Medications: None as per patient and [id number]. Allergies: Penicillin Surgical history: Plastic surgery for bilateral ptosis. Laminectomy lumbar. Cataract surgery. Social: 2-3 PPD x 70 years. Alcohol: 4-5 beers/day for 50 years; Currently 5 beers daily. CODE STATUS: DNR/DNI POA: Darren Li - Related Data Allergies/Adverse Reactions: Allergies Allergy/AdvReac Type Severity Reaction Status Date / Time No Known Allergies Allergy Verified 05/10/21 18:19 Past Medical History HEENT History: Reports: Cataract, Hard of Hearing, Other (See Below) Other HEENT History: uses reading glasses, has chronic conjunctivitis, has upper and lower dentures, has bilateral hearing aides Cardiovascular History: Reports: CAD, High Cholesterol Respiratory History: Reports: COPD, SOB Other Respiratory History: does not use inhalers for COPD Gastrointestinal History: Reports: GERD Genitourinary History: Reports: None Musculoskeletal History: Reports: Fracture, Osteoarthritis Other Musculoskeletal History: hx of fx left ankle Neurological History: Reports: Migraines Other Neuro History: hx of cluster headaches- none for 10 years Psychiatric History: Reports: None Endocrine/Metabolic History: Reports: None Hematologic History: Reports: Blood Transfusion(s) Immunologic History: Reports: None Oncologic (Cancer) History: Reports: None Dermatologic History: Reports: None Other Dermatologic History: has "jock itch" - Infectious Disease History Infectious Disease History: Reports: Chicken Pox, Measles - Past Surgical History Head Surgeries/Procedures: Reports: None HEENT Surgical History: Reports: Cataract Surgery Cardiovascular Surgical History: Reports: Coronary Artery Bypass Other Cardiovascular Surgeries/Procedures: CABG x5 vessels-"many many years ago" GI Surgical History: Reports: None Neurological Surgical History: Reports: Laminectomy, Lumbar Spine Social & Family History - Family History Family Medical History: No Pertinent Family History - Tobacco Use Tobacco Use Status *Q: Current Every Day Tobacco User Years of Tobacco use: 75 Packs/Tins Daily: 3 Used Tobacco, but Quit: No Second Hand Smoke Exposure: No - Caffeine Use Caffeine Use: Reports: None - Recreational Drug Use Recreational Drug Use: No H&P Review of Systems - Review of Systems: Review Of Systems: See Below General: Reports: Weakness. Denies: Fever, Chills HEENT: Denies: Headaches Pulmonary: Reports: Shortness of Breath, Wheezing, Cough, Sputum. Denies: Pleuritic Chest Pain, Hemoptysis Cardiovascular: Reports: Dyspnea on Exertion. Denies: Chest Pain, Palpitations, Edema Gastrointestinal: Denies: Abdominal Pain, Anorexia, Black Stool, Bloody Stool, Constipation, Diarrhea, Hematemesis, Melena, Nausea, Vomiting Genitourinary: Denies: Dysuria Musculoskeletal: Denies: Neck Pain Skin: Denies: Cyanosis, Diaphoresis Neurological: Reports: Pre-Existing Deficit. Denies: Trouble Speaking, Change in Speech Exam - Exam Exam: See Below - Vital Signs Vital Signs: Last Vital Signs Temp 98.6 F 05/10/21 16:30 Pulse 83 05/10/21 16:30 Resp 26 H 05/10/21 10:33 BP 126/56 L 05/10/21 16:30 Pulse Ox 89 L 05/10/21 16:30 Weight: 134 lb 11.2 oz - Exam General: Alert, Oriented, Cooperative HEENT: Conjunctiva Clear, Pupils Reactive. No: Mucosa Moist & [place], Scleral Icterus Neck: Supple Lungs: Decreased Breath Sounds, Crackles, Wheezing Cardiovascular: Regular Rate, Regular Rhythm GI/Abdominal Exam: Normal Bowel Sounds, Soft, Non-Tender Back Exam: No: CVA Tenderness (L), CVA Tenderness (R) Extremities: Non-Tender, No Pedal Edema Peripheral Pulses: 2+: Dorsalis Pedis (L), Dorsalis Pedis (R) Skin: Warm, Dry, Intact Neuro Extensive - Motor, Sensory, Reflexes: Facial palsy (L) Psychiatric: Alert - Patient Data Lab Results Last 24 hrs: Laboratory Results - last 24 hr 05/10/21 05/10/21 05/10/21 Range/Units 10:43 10:50 12:20 WBC 12.35 H (4.0-11.0) K/uL RBC 5.55 (4.50-5.90) M/uL Hgb 16.4 (13.0-17.0) g/dL Hct 52.6 H (38.0-50.0) % MCV 94.8 (80.0-98.0) fL MCH 29.5 (27.0-32.0) pg MCHC 31.2 (31.0-37.0) g/dL RDW Std Deviation 51.8 (28.0-62.0) fl RDW Coeff of Saúl 15 (11.0-15.0) % Plt Count 308 (150-400) K/uL MPV 11.10 (7.40-12.00) fL Neut % (Auto) 72.2 (48.0-80.0) % Lymph % (Auto) 18.9 (16.0-40.0) % [place] % (Auto) 8.1 (0.0-15.0) % Eos % (Auto) 0.6 (0.0-7.0) % Baso % (Auto) 0.2 (0.0-1.5) % Neut # (Auto) 8.9 H (1.4-5.7) K/uL Lymph # (Auto) 2.3 (0.6-2.4) K/uL [place] # (Auto) 1.0 H (0.0-0.8) K/uL Eos # (Auto) 0.1 (0.0-0.7) K/uL Baso # (Auto) 0.0 (0.0-0.1) K/uL Nucleated RBC % 0.0 /100WBC Nucleated RBCs # 0 K/uL INR Sodium (136-148) mmol/L Potassium (3.5-5.1) mmol/L Chloride (98-107) mmol/L Carbon Dioxide (21.0-32.0) mmol/L BUN (7.0-18.0) mg/dL Creatinine (0.8-1.3) mg/dL Est Cr Clr Drug Dosing mL/min Estimated GFR (MDRD) ml/min Glucose (74-106) mg/dL Lactic Acid 1.5 (0.4-2.0) mmol/L Calcium (8.5-10.1) mg/dL Total Bilirubin (0.2-1.0) mg/dL AST (15-37) IU/L ALT (14-63) IU/L Alkaline Phosphatase (46-116) U/L Troponin I (0.000-0.056) ng/mL B-Natriuretic Peptide (<100) PG/ML Total Protein (6.4-8.2) g/dL Albumin (3.4-5.0) g/dL Globulin (2.6-4.0) g/dL Albumin/Globulin Ratio (0.9-1.6) Urine Color Urine Appearance Urine pH (5.0-8.0) Ur Specific [place] (1.001-1.035) Urine Protein (NEGATIVE) mg/dL Urine Glucose (UA) (NEGATIVE) mg/dL Urine Ketones (NEGATIVE) mg/dL Urine Occult Blood (NEGATIVE) Urine Nitrite (NEGATIVE) Urine Bilirubin (NEGATIVE) Urine Ictotest Urine Urobilinogen (<2.0) EU/dL Ur Leukocyte Esterase (NEGATIVE) SARS-CoV-2 RNA (STEPHANIE) NEGATIVE (NEGATIVE) 05/10/21 05/10/21 05/10/21 Range/Units 12:20 13:01 13:10 WBC (4.0-11.0) K/uL RBC (4.50-5.90) M/uL Hgb (13.0-17.0) g/dL Hct (38.0-50.0) % MCV (80.0-98.0) fL MCH (27.0-32.0) pg MCHC (31.0-37.0) g/dL RDW Std Deviation (28.0-62.0) fl RDW Coeff of Saúl (11.0-15.0) % Plt Count (150-400) K/uL MPV (7.40-12.00) fL Neut % (Auto) (48.0-80.0) % Lymph % (Auto) (16.0-40.0) % [place] % (Auto) (0.0-15.0) % Eos % (Auto) (0.0-7.0) % Baso % (Auto) (0.0-1.5) % Neut # (Auto) (1.4-5.7) K/uL Lymph # (Auto) (0.6-2.4) K/uL [place] # (Auto) (0.0-0.8) K/uL Eos # (Auto) (0.0-0.7) K/uL Baso # (Auto) (0.0-0.1) K/uL Nucleated RBC % /100WBC Nucleated RBCs # K/uL INR 1.11 Sodium (136-148) mmol/L Potassium (3.5-5.1) mmol/L Chloride (98-107) mmol/L Carbon Dioxide (21.0-32.0) mmol/L BUN (7.0-18.0) mg/dL Creatinine (0.8-1.3) mg/dL Est Cr Clr Drug Dosing mL/min Estimated GFR (MDRD) ml/min Glucose (74-106) mg/dL Lactic Acid (0.4-2.0) mmol/L Calcium (8.5-10.1) mg/dL Total Bilirubin (0.2-1.0) mg/dL AST (15-37) IU/L ALT (14-63) IU/L Alkaline Phosphatase (46-116) U/L Troponin I (0.000-0.056) ng/mL B-Natriuretic Peptide 576 H (<100) PG/ML Total Protein (6.4-8.2) g/dL Albumin (3.4-5.0) g/dL Globulin (2.6-4.0) g/dL Albumin/Globulin Ratio (0.9-1.6) Urine Color YELLOW Urine Appearance CLEAR Urine pH 5.5 (5.0-8.0) Ur Specific [place] >= 1.030 (1.001-1.035) Urine Protein NEGATIVE (NEGATIVE) mg/dL Urine Glucose (UA) NEGATIVE (NEGATIVE) mg/dL Urine Ketones TRACE H (NEGATIVE) mg/dL Urine Occult Blood NEGATIVE (NEGATIVE) Urine Nitrite NEGATIVE (NEGATIVE) Urine Bilirubin SMALL H (NEGATIVE) Urine Ictotest NEGATIVE Urine Urobilinogen 0.2 (<2.0) EU/dL Ur Leukocyte Esterase NEGATIVE (NEGATIVE) SARS-CoV-2 RNA (STEPHANIE) (NEGATIVE) 05/10/21 Range/Units 13:45 WBC (4.0-11.0) K/uL RBC (4.50-5.90) M/uL Hgb (13.0-17.0) g/dL Hct (38.0-50.0) % MCV (80.0-98.0) fL MCH (27.0-32.0) pg MCHC (31.0-37.0) g/dL RDW Std Deviation (28.0-62.0) fl RDW Coeff of Saúl (11.0-15.0) % Plt Count (150-400) K/uL MPV (7.40-12.00) fL Neut % (Auto) (48.0-80.0) % Lymph % (Auto) (16.0-40.0) % [place] % (Auto) (0.0-15.0) % Eos % (Auto) (0.0-7.0) % Baso % (Auto) (0.0-1.5) % Neut # (Auto) (1.4-5.7) K/uL Lymph # (Auto) (0.6-2.4) K/uL [place] # (Auto) (0.0-0.8) K/uL Eos # (Auto) (0.0-0.7) K/uL Baso # (Auto) (0.0-0.1) K/uL Nucleated RBC % /100WBC Nucleated RBCs # K/uL INR Sodium 147 (136-148) mmol/L Potassium 4.6 (3.5-5.1) mmol/L Chloride 105 (98-107) mmol/L Carbon Dioxide 34.5 H (21.0-32.0) mmol/L BUN 24 H (7.0-18.0) mg/dL Creatinine 1.3 (0.8-1.3) mg/dL Est Cr Clr Drug Dosing 41.87 mL/min Estimated GFR (MDRD) 52.3 ml/min Glucose 125 H (74-106) mg/dL Lactic Acid (0.4-2.0) mmol/L Calcium 9.0 (8.5-10.1) mg/dL Total Bilirubin 0.5 (0.2-1.0) mg/dL AST 45 H (15-37) IU/L ALT 42 (14-63) IU/L Alkaline Phosphatase 200 H (46-116) U/L Troponin I < 0.050 (0.000-0.056) ng/mL B-Natriuretic Peptide (<100) PG/ML Total Protein 6.7 (6.4-8.2) g/dL Albumin 2.6 L (3.4-5.0) g/dL Globulin 4.1 H (2.6-4.0) g/dL Albumin/Globulin Ratio 0.6 L (0.9-1.6) Urine Color Urine Appearance Urine pH (5.0-8.0) Ur Specific [place] (1.001-1.035) Urine Protein (NEGATIVE) mg/dL Urine Glucose (UA) (NEGATIVE) mg/dL Urine Ketones (NEGATIVE) mg/dL Urine Occult Blood (NEGATIVE) Urine Nitrite (NEGATIVE) Urine Bilirubin (NEGATIVE) Urine Ictotest Urine Urobilinogen (<2.0) EU/dL Ur Leukocyte Esterase (NEGATIVE) SARS-CoV-2 RNA (STEPHANIE) (NEGATIVE) Result Diagrams: 05/10/21 12:20 05/10/21 13:45 Luis Results Last 24 hrs: Microbiology 05/10/21 12:37 Anaerobic Blood Culture - Final Blood - Venous - Lab Draw 05/10/21 12:20 Anaerobic Blood Culture - Final Blood - Venous Sepsis Event Note - Evaluation Sepsis Screening Result: No Definite Risk - Focused Exam Vital Signs: Vital Signs Temp Pulse Resp BP Pulse Ox 05/10/21 16:30 98.6 F 83 126/56 L 89 L 05/10/21 15:11 89 95 05/10/21 13:42 83 117/62 100 05/10/21 13:12 88 122/66 98 05/10/21 12:42 86 122/53 L 94 L 05/10/21 12:07 86 99 05/10/21 11:49 87 132/73 100 05/10/21 11:17 103 H 96 05/10/21 10:50 83 147/85 H 96 05/10/21 10:48 93 L 05/10/21 10:33 97.5 F 82 26 H 143/76 H 70 L - Problem List (1) COPD exacerbation SNOMED Code(s): 683430392 ICD Code: J44.1 - CHRONIC OBSTRUCTIVE PULMONARY DISEASE W (ACUTE) EXACERBATION Status: Acute Current Visit: Yes (2) COLD, Chronic obstructive lung disease SNOMED Code(s): 78617913 ICD Code: J44.9 - CHRONIC OBSTRUCTIVE PULMONARY DISEASE, UNSPECIFIED Status: Acute Current Visit: No (3) Dehydration SNOMED Code(s): 82677474 ICD Code: E86.0 - DEHYDRATION Status: Acute Current Visit: Yes Problem List Initiated/Reviewed/Updated: Yes Orders Last 24hrs: Active Orders 24 hr Category Date Time Status Admission Status [Patient Status] [ADT] Stat ADT 05/10/21 14:54 Active Cardiac Monitoring [RC] . DIRECTED Care 05/10/21 10:46 Active Pulse Oximetry [RC] ASDIRECTED Care 05/10/21 10:46 Active RT Aerosol Therapy [RC] ASDIRECTED Care 05/10/21 10:48 Active BLOOD GAS ARTERIAL [BG] Stat Lab 05/10/21 10:46 Ordered CULTURE BLOOD [BC] Stat Lab 05/10/21 12:20 Results CULTURE BLOOD [BC] Stat Lab 05/10/21 12:37 Results CULTURE URINE [MREF] Stat Lab 05/10/21 13:10 Received Sodium Chloride 0.9% [Saline Flush] Med 05/10/21 10:46 Active 10 ml FLUSH ASDIRECTED PRN Sodium Chloride 0.9% [Saline Flush] Med 05/10/21 10:46 Active 2.5 ml FLUSH ASDIRECTED PRN Blood Culture x2 Reflex Set [OM.PC] Stat Oth 05/10/21 10:46 Ordered Saline Lock Insert [OM.PC] Stat Oth 05/10/21 10:46 Ordered Medication Orders Sodium Chloride (Sodium Chloride 0.9% 10 Ml Syringe) 10 ml FLUSH ASDIRECTED PRN PRN Reason: Keep Vein Open Last Admin: 05/10/21 10:59 Dose: 10 ml Documented by: EMILIE Sodium Chloride (Sodium Chloride 0.9% 2.5 Ml Syringe) 2.5 ml FLUSH ASDIRECTED PRN PRN Reason: Keep Vein Open Last Admin: 05/10/21 10:58 Dose: 2.5 ml Documented by: EMILIE Assessment/Plan Comment:: COPD Exacerbation: Solu-Medrol 125 mg IV q8hr Duo nebs. Levaquin 500 mg daily Regular diet. CODE STATUS: DNR/DNI
[2021-05-10] MEDS ORDERED: Polyethylene Glycol 3350 Powder 17 GM Packet PO PRN (17:50)
[2021-05-10] MEDS ORDERED: Ondansetron 4 MG/2 ML SDV IVPUSH PRN (17:50)
[2021-05-10] MEDS ORDERED: Albuterol/Ipratropium 3.0-0.5 MG/3 ML Neb Soln NEB PRN (17:50)
[2021-05-10] MEDS ORDERED: Acetaminophen 325 MG Tab PO PRN (17:50)
[2021-05-10] MEDS: methylPREDNISolone Sodium Succinate 125 MG/2 ML SDV IVPUSH SCH (18:42)
[2021-05-10] MEDS ORDERED: Enoxaparin 40 MG/0.4 ML Syringe SUBCUT SCH (20:00)
[2021-05-11] MEDS: methylPREDNISolone Sodium Succinate 125 MG/2 ML SDV IVPUSH SCH ×2 (02:14→09:18)
--- NOTE | 2021-05-11 07:47 | PCM.DCSUM1 ---
<Luke Cruz - Last Filed: 05/11/21 10:25> Discharge Summary - Hospital Course Free Text/Narrative:: 85-year-old male with history of CAD and unmanaged severe COPD, currently smoking 3 packs/day x70yrs was admitted for COPD exacerbation. Patient came to the ER complaining of worsening shortness of breath and difficulty breathing. He was found to be hypoxic and required nasal cannula [address] was negative. Patient received Solu-Medrol and levofloxacin and symptoms improved. Patient CT chest showed a 2.7 cm x 2.7 cm spiculated mass in the left lower lobe highly worrisome for malignancy. This was brought to the attention of the patient who stated he had no prior knowledge. He was not surprised. Patient refused referral to specialist for further work-up. Patient stated he would discuss with PCP. Patient discharged on 5 days of levofloxacin and prednisone. Home oxygen e valuation completed and patient will be sent home on home oxygen nasal cannula. Patient will require 3 L nasal cannula continuously. Patient currently drinks 5 beers daily. Patient denies chest pain, palpitations, fever, chills, lightheadedness, loss of consciousness, abdominal pain, nausea, vomiting, diarrhea or calf pain. Patient's care was discussed with his [id number] Shefali who was at bedside both days. Shefali: [phone]. POA for the patient is his son - Nir Li. This is Shefali's . On admission CODE STATUS was discussed with patient and [id number] and patient opted for DNR/DNI. Patient to follow-up with PCP for lung mass management. - Discharge Data Discharge Date: 05/11/21 Discharge Disposition: Home, W Home Health Agency 06 Condition: Stable - Referral to Home Health Primary Care Physician: Randy Gregorio MD - Discharge Diagnosis/Problem(s) (1) COPD exacerbation SNOMED Code(s): 353701280 ICD Code: J44.1 - CHRONIC OBSTRUCTIVE PULMONARY DISEASE W (ACUTE) EXACERBATION Status: Acute (2) COLD, Chronic obstructive lung disease SNOMED Code(s): 77207188 ICD Code: J44.9 - CHRONIC OBSTRUCTIVE PULMONARY DISEASE, UNSPECIFIED Status: Acute (3) Dehydration SNOMED Code(s): 30934929 ICD Code: E86.0 - DEHYDRATION Status: Acute - Discharge Plan Prescriptions/Med Rec: Levofloxacin 500 mg PO DAILY 5 Days #5 tablet predniSONE [Prednisone] 50 mg PO DAILY #5 tablet Home Medications: Home Meds Levofloxacin 500 mg PO DAILY 5 Days #5 tablet 05/11/21 [Rx] predniSONE [Prednisone] 50 mg PO DAILY #5 tablet 05/11/21 [Rx] Patient Handouts: Chronic Obstructive Pulmonary Disease, [id number], Home Oxygen Use, Adult, Levofloxacin tablets, Prednisone tablets Referrals: Randy Gregorio MD [Primary Care Provider] - (An appointment request has been sent to Dr. Gregorio's clinic, they will call you with your appointment time. F/u left lower lung mass, highly suspicious for malignancy. ) - Discharge Summary/Plan Comment DC Time >30 min.: Yes Total # of Minutes for Discharge Time: 1.5hr - General Info Admission Dx/Problem (Free Text: Admission Diagnosis/Problem Admission Diagnosis/Problem COPD, Moderate chronic obstructive pulmonary disease - Review of Systems General: Denies: Fever, Chills Pulmonary: Reports: Shortness of Breath. Denies: Pleuritic Chest Pain, Cough, Sputum Cardiovascular: Reports: Dyspnea on Exertion. Denies: Chest Pain, Palpitations, Orthopnea, Edema Gastrointestinal: Denies: Abdominal Pain, Constipation, Diarrhea, Nausea, Vomiting Genitourinary: Denies: Dysuria Musculoskeletal: Denies: Leg Pain Skin: Denies: Cyanosis, Pallor Neurological: Reports: Pre-Existing Deficit. Denies: Confusion, Dizziness, Headache, Numbness, Paresthesia - Patient Data Vitals - Most Recent: Last Vital Signs Temp 99.5 F 05/11/21 04:00 Pulse 79 05/11/21 04:00 Resp 20 05/11/21 04:00 BP 124/57 L 05/11/21 04:00 Pulse Ox 93 L 05/11/21 04:24 Weight - Most Recent: 61.099 kg I&O - Last 24 hours: Intake & Output 05/10/21 05/11/21 05/11/21 22:59 06:59 14:59 Intake Total 300 Balance 300 Lab Results - Last 24 hrs: Laboratory Results - last 24 hr 05/10/21 05/10/21 05/10/21 Range/Units 10:43 10:50 12:20 WBC 12.35 H (4.0-11.0) K/uL RBC 5.55 (4.50-5.90) M/uL Hgb 16.4 (13.0-17.0) g/dL Hct 52.6 H (38.0-50.0) % MCV 94.8 (80.0-98.0) fL MCH 29.5 (27.0-32.0) pg MCHC 31.2 (31.0-37.0) g/dL RDW Std Deviation 51.8 (28.0-62.0) fl RDW Coeff of Saúl 15 (11.0-15.0) % Plt Count 308 (150-400) K/uL MPV 11.10 (7.40-12.00) fL Neut % (Auto) 72.2 (48.0-80.0) % Lymph % (Auto) 18.9 (16.0-40.0) % Kane % (Auto) 8.1 (0.0-15.0) % Eos % (Auto) 0.6 (0.0-7.0) % Baso % (Auto) 0.2 (0.0-1.5) % Neut # (Auto) 8.9 H (1.4-5.7) K/uL Lymph # (Auto) 2.3 (0.6-2.4) K/uL Kane # (Auto) 1.0 H (0.0-0.8) K/uL Eos # (Auto) 0.1 (0.0-0.7) K/uL Baso # (Auto) 0.0 (0.0-0.1) K/uL Nucleated RBC % 0.0 /100WBC Nucleated RBCs # 0 K/uL INR Sodium (136-148) mmol/L Potassium (3.5-5.1) mmol/L Chloride (98-107) mmol/L Carbon Dioxide (21.0-32.0) mmol/L BUN (7.0-18.0) mg/dL Creatinine (0.8-1.3) mg/dL Est Cr Clr Drug Dosing mL/min Estimated GFR (MDRD) ml/min Glucose (74-106) mg/dL Lactic Acid 1.5 (0.4-2.0) mmol/L Calcium (8.5-10.1) mg/dL Total Bilirubin (0.2-1.0) mg/dL AST (15-37) IU/L ALT (14-63) IU/L Alkaline Phosphatase (46-116) U/L Troponin I (0.000-0.056) ng/mL B-Natriuretic Peptide (<100) PG/ML Total Protein (6.4-8.2) g/dL Albumin (3.4-5.0) g/dL Globulin (2.6-4.0) g/dL Albumin/Globulin Ratio (0.9-1.6) Urine Color Urine Appearance Urine pH (5.0-8.0) Ur Specific [place] (1.001-1.035) Urine Protein (NEGATIVE) mg/dL Urine Glucose (UA) (NEGATIVE) mg/dL Urine Ketones (NEGATIVE) mg/dL Urine Occult Blood (NEGATIVE) Urine Nitrite (NEGATIVE) Urine Bilirubin (NEGATIVE) Urine Ictotest Urine Urobilinogen (<2.0) EU/dL Ur Leukocyte Esterase (NEGATIVE) SARS-CoV-2 RNA (STEPHANIE) NEGATIVE (NEGATIVE) 05/10/21 05/10/21 05/10/21 Range/Units 12:20 13:01 13:10 WBC (4.0-11.0) K/uL RBC (4.50-5.90) M/uL Hgb (13.0-17.0) g/dL Hct (38.0-50.0) % MCV (80.0-98.0) fL MCH (27.0-32.0) pg MCHC (31.0-37.0) g/dL RDW Std Deviation (28.0-62.0) fl RDW Coeff of Saúl (11.0-15.0) % Plt Count (150-400) K/uL MPV (7.40-12.00) fL Neut % (Auto) (48.0-80.0) % Lymph % (Auto) (16.0-40.0) % Kane % (Auto) (0.0-15.0) % Eos % (Auto) (0.0-7.0) % Baso % (Auto) (0.0-1.5) % Neut # (Auto) (1.4-5.7) K/uL Lymph # (Auto) (0.6-2.4) K/uL Kane # (Auto) (0.0-0.8) K/uL Eos # (Auto) (0.0-0.7) K/uL Baso # (Auto) (0.0-0.1) K/uL Nucleated RBC % /100WBC Nucleated RBCs # K/uL INR 1.11 Sodium (136-148) mmol/L Potassium (3.5-5.1) mmol/L Chloride (98-107) mmol/L Carbon Dioxide (21.0-32.0) mmol/L BUN (7.0-18.0) mg/dL Creatinine (0.8-1.3) mg/dL Est Cr Clr Drug Dosing mL/min Estimated GFR (MDRD) ml/min Glucose (74-106) mg/dL Lactic Acid (0.4-2.0) mmol/L Calcium (8.5-10.1) mg/dL Total Bilirubin (0.2-1.0) mg/dL AST (15-37) IU/L ALT (14-63) IU/L Alkaline Phosphatase (46-116) U/L Troponin I (0.000-0.056) ng/mL B-Natriuretic Peptide 576 H (<100) PG/ML Total Protein (6.4-8.2) g/dL Albumin (3.4-5.0) g/dL Globulin (2.6-4.0) g/dL Albumin/Globulin Ratio (0.9-1.6) Urine Color YELLOW Urine Appearance CLEAR Urine pH 5.5 (5.0-8.0) Ur Specific [place] >= 1.030 (1.001-1.035) Urine Protein NEGATIVE (NEGATIVE) mg/dL Urine Glucose (UA) NEGATIVE (NEGATIVE) mg/dL Urine Ketones TRACE H (NEGATIVE) mg/dL Urine Occult Blood NEGATIVE (NEGATIVE) Urine Nitrite NEGATIVE (NEGATIVE) Urine Bilirubin SMALL H (NEGATIVE) Urine Ictotest NEGATIVE Urine Urobilinogen 0.2 (<2.0) EU/dL Ur Leukocyte Esterase NEGATIVE (NEGATIVE) SARS-CoV-2 RNA (STEPHANIE) (NEGATIVE) 05/10/21 05/11/21 Range/Units 13:45 06:15 WBC 12.67 H (4.0-11.0) K/uL RBC 4.94 (4.50-5.90) M/uL Hgb 14.3 (13.0-17.0) g/dL Hct 46.2 (38.0-50.0) % MCV 93.5 (80.0-98.0) fL MCH 28.9 (27.0-32.0) pg MCHC 31.0 (31.0-37.0) g/dL RDW Std Deviation 50.5 (28.0-62.0) fl RDW Coeff of Saúl 15 (11.0-15.0) % Plt Count 353 (150-400) K/uL MPV 11.00 (7.40-12.00) fL Neut % (Auto) (48.0-80.0) % Lymph % (Auto) (16.0-40.0) % Kane % (Auto) (0.0-15.0) % Eos % (Auto) (0.0-7.0) % Baso % (Auto) (0.0-1.5) % Neut # (Auto) (1.4-5.7) K/uL Lymph # (Auto) (0.6-2.4) K/uL Kane # (Auto) (0.0-0.8) K/uL Eos # (Auto) (0.0-0.7) K/uL Baso # (Auto) (0.0-0.1) K/uL Nucleated RBC % 0.0 /100WBC Nucleated RBCs # 0 K/uL INR Sodium 147 (136-148) mmol/L Potassium 4.6 (3.5-5.1) mmol/L Chloride 105 (98-107) mmol/L Carbon Dioxide 34.5 H (21.0-32.0) mmol/L BUN 24 H (7.0-18.0) mg/dL Creatinine 1.3 (0.8-1.3) mg/dL Est Cr Clr Drug Dosing 41.87 mL/min Estimated GFR (MDRD) 52.3 ml/min Glucose 125 H (74-106) mg/dL Lactic Acid (0.4-2.0) mmol/L Calcium 9.0 (8.5-10.1) mg/dL Total Bilirubin 0.5 (0.2-1.0) mg/dL AST 45 H (15-37) IU/L ALT 42 (14-63) IU/L Alkaline Phosphatase 200 H (46-116) U/L Troponin I < 0.050 (0.000-0.056) ng/mL B-Natriuretic Peptide (<100) PG/ML Total Protein 6.7 (6.4-8.2) g/dL Albumin 2.6 L (3.4-5.0) g/dL Globulin 4.1 H (2.6-4.0) g/dL Albumin/Globulin Ratio 0.6 L (0.9-1.6) Urine Color Urine Appearance Urine pH (5.0-8.0) Ur Specific [place] (1.001-1.035) Urine Protein (NEGATIVE) mg/dL Urine Glucose (UA) (NEGATIVE) mg/dL Urine Ketones (NEGATIVE) mg/dL Urine Occult Blood (NEGATIVE) Urine Nitrite (NEGATIVE) Urine Bilirubin (NEGATIVE) Urine Ictotest Urine Urobilinogen (<2.0) EU/dL Ur Leukocyte Esterase (NEGATIVE) SARS-CoV-2 RNA (STEPHANIE) (NEGATIVE) LADONNA Results - Last 24 hrs: Microbiology 05/10/21 12:37 Anaerobic Blood Culture - Final Blood - Venous - Lab Draw 05/10/21 12:20 Anaerobic Blood Culture - Final Blood - Venous Med Orders - Current: Current Medications Acetaminophen (Acetaminophen 325 Mg Tab) 650 mg PO Q4H PRN PRN Reason: Pain (Mild 1-3)/fever Albuterol/Ipratropium (Albuterol/Ipratropium 3.0-0.5 Mg/3 Ml Neb Soln) 3 ml NEB Q4HRRT PRN PRN Reason: Shortness Of Breath/wheezing Enoxaparin Sodium (Enoxaparin 40 Mg/0.4 Ml Syringe) 40 mg SUBCUT Q24H [facility] Last Admin: 05/10/21 20:52 Dose: 40 mg Documented by: Pantoprazole Sodium 40 mg/ (Sodium Chloride) 10 mls @ 200 mls/hr IV Q24H [facility] Levofloxacin/Dextrose (Levaquin In D5w 250 Mg/50 Ml) 50 mls @ 50 mls/hr IV Q24H [facility] Methylprednisolone Sodium Succinate (Methylprednisolone Sodium Succinate 125 Mg/2 Ml Sdv) 125 mg IVPUSH Q8H [facility] Last Admin: 05/11/21 02:14 Dose: 125 mg Documented by: Nicotine (Nicotine 21 Mg/24 Hr Patch) 21 mg TRDERM DAILY PRN PRN Reason: Other Ondansetron HCl (Ondansetron 4 Mg/2 Ml Sdv) 4 mg IVPUSH Q4H PRN PRN Reason: Nausea Polyethylene Glycol (Polyethylene Glycol 3350 Powder 17 Gm Packet) 17 gm PO DAILY PRN PRN Reason: Constipation Sodium Chloride (Sodium Chloride 0.9% 10 Ml Syringe) 10 ml FLUSH ASDIRECTED PRN PRN Reason: Keep Vein Open Last Admin: 05/10/21 10:59 Dose: 10 ml Documented by: Sodium Chloride (Sodium Chloride 0.9% 2.5 Ml Syringe) 2.5 ml FLUSH ASDIRECTED PRN PRN Reason: Keep Vein Open Last Admin: 05/10/21 10:58 Dose: 2.5 ml Documented by: Discontinued Medications Albuterol/Ipratropium (Albuterol/Ipratropium 3.0-0.5 Mg/3 Ml Neb Soln) 6 ml NEB ONETIME ONE Stop: 05/10/21 10:49 Last Admin: 05/10/21 10:58 Dose: 6 ml Documented by: Albuterol/Ipratropium (Albuterol/Ipratropium 3.0-0.5 Mg/3 Ml Neb Soln) 3 ml NEB ONETIME ONE Stop: 05/10/21 21:01 Last Admin: 05/10/21 20:53 Dose: 3 ml Documented by: Levofloxacin/Dextrose 500 mg/ (Premix) 100 mls @ 100 mls/hr IV ONETIME ONE Stop: 05/10/21 11:47 Last Admin: 05/10/21 10:59 Dose: 100 mls/hr Documented by: Levofloxacin/Dextrose 500 mg/ (Premix) 100 mls @ 100 mls/hr IV Q24H JAMIE Iopamidol (Iopamidol 755 Mg/Ml 500 Ml Multipack Bottle) 100 ml IVPUSH ONETIME STA Stop: 05/10/21 16:02 Last Admin: 05/10/21 16:03 Dose: 100 ml Documented by: Methylprednisolone Sodium Succinate (Methylprednisolone Sodium Succinate 125 Mg/2 Ml Sdv) 125 mg IVPUSH ONETIME ONE Stop: 05/10/21 10:48 Last Admin: 05/10/21 10:59 Dose: 125 mg Documented by: Pantoprazole Sodium (Pantoprazole 40 Mg Vial) 40 mg IV DAILY JAMIE - Exam Quality Assessment: Reports: Supplemental Oxygen General: Reports: Alert, Oriented, Cooperative, No Acute Distress HEENT: Reports: Pupils Equal, Pupils Reactive Neck: Reports: Supple, No JVD Lungs: Reports: Decreased Breath Sounds Cardiovascular: Reports: Regular Rate, Regular Rhythm GI/Abdominal Exam: Normal Bowel Sounds, Soft, Non-Tender Back Exam: Reports: Normal Inspection Extremities: Normal Inspection, Non-Tender, No Pedal Edema. No: Reji's Sign Skin: Reports: Warm, Dry, Intact Neurological: Reports: No New Focal Deficit, Other (Baseline facial droop, left. Mild bilateral ptosis.) <Marvin Jo J - Last Filed: 05/11/21 17:04> Discharge Summary - Referral to Home Health Date of Face to Face Encounter: 05/11/21 Reason for Homebound Status: severe COPD, chronic respiratory failure Primary Care Physician: Randy Gregorio MD Skilled Need: medication adjustments - Patient Summary/Data Consults: Consultations 05/11/21 11:16 Consult to Home Care [Consult to Home Health] [CONS] Routine - Patient Data Vitals - Most Recent: Last Vital Signs Temp 36.3 C 05/11/21 12:43 Pulse 68 05/11/21 12:43 Resp 17 05/11/21 12:43 BP 112/57 L 05/11/21 12:43 Pulse Ox 92 L 05/11/21 12:43 I&O - Last 24 hours: Intake & Output 05/11/21 05/11/21 05/11/21 06:59 14:59 22:59 Intake Total 300 600 Balance 300 600 Lab Results - Last 24 hrs: Laboratory Results - last 24 hr 05/11/21 05/11/21 Range/Units 06:15 06:15 WBC 12.67 H (4.0-11.0) K/uL RBC 4.94 (4.50-5.90) M/uL Hgb 14.3 (13.0-17.0) g/dL Hct 46.2 (38.0-50.0) % MCV 93.5 (80.0-98.0) fL MCH 28.9 (27.0-32.0) pg MCHC 31.0 (31.0-37.0) g/dL RDW Std Deviation 50.5 (28.0-62.0) fl RDW Coeff of Saúl 15 (11.0-15.0) % Plt Count 353 (150-400) K/uL MPV 11.00 (7.40-12.00) fL Nucleated RBC % 0.0 /100WBC Nucleated RBCs # 0 K/uL Sodium 139 (136-148) mmol/L Potassium 4.7 (3.5-5.1) mmol/L Chloride 102 (98-107) mmol/L Carbon Dioxide 33.3 H (21.0-32.0) mmol/L BUN 21 H (7.0-18.0) mg/dL Creatinine 1.1 (0.8-1.3) mg/dL Est Cr Clr Drug Dosing 41.66 mL/min Estimated GFR (MDRD) > 60.0 ml/min Glucose 178 H (74-106) mg/dL Calcium 8.1 L (8.5-10.1) mg/dL Total Bilirubin 0.3 (0.2-1.0) mg/dL AST 23 (15-37) IU/L ALT 33 (14-63) IU/L Alkaline Phosphatase 169 H (46-116) U/L Total Protein 6.7 (6.4-8.2) g/dL Albumin 2.3 L (3.4-5.0) g/dL Globulin 4.4 H (2.6-4.0) g/dL Albumin/Globulin Ratio 0.5 L (0.9-1.6) LADONNA Results - Last 24 hrs: Microbiology 05/10/21 12:37 Aerobic Blood Culture - Preliminary Blood - Venous - Lab Draw NO GROWTH AFTER 1 DAY Anaerobic Blood Culture - Final 05/10/21 12:20 Aerobic Blood Culture - Preliminary Blood - Venous NO GROWTH AFTER 1 DAY Anaerobic Blood Culture - Final Med Orders - Current: Current Medications Discontinued Medications Acetaminophen (Acetaminophen 325 Mg Tab) 650 mg PO Q4H PRN PRN Reason: Pain (Mild 1-3)/fever Albuterol/Ipratropium (Albuterol/Ipratropium 3.0-0.5 Mg/3 Ml Neb Soln) 6 ml NEB ONETIME ONE Stop: 05/10/21 10:49 Last Admin: 05/10/21 10:58 Dose: 6 ml Documented by: Albuterol/Ipratropium (Albuterol/Ipratropium 3.0-0.5 Mg/3 Ml Neb Soln) 3 ml NEB Q4HRRT PRN PRN Reason: Shortness Of Breath/wheezing Albuterol/Ipratropium (Albuterol/Ipratropium 3.0-0.5 Mg/3 Ml Neb Soln) 3 ml NEB ONETIME ONE Stop: 05/10/21 21:01 Last Admin: 05/10/21 20:53 Dose: 3 ml Documented by: Enoxaparin Sodium (Enoxaparin 40 Mg/0.4 Ml Syringe) 40 mg SUBCUT Q24H [facility] Last Admin: 05/10/21 20:52 Dose: 40 mg Documented by: Levofloxacin/Dextrose 500 mg/ (Premix) 100 mls @ 100 mls/hr IV ONETIME ONE Stop: 05/10/21 11:47 Last Admin: 05/10/21 10:59 Dose: 100 mls/hr Documented by: Levofloxacin/Dextrose 500 mg/ (Premix) 100 mls @ 100 mls/hr IV Q24H JAMIE Pantoprazole Sodium 40 mg/ (Sodium Chloride) 10 mls @ 200 mls/hr IV Q24H JAMIE Levofloxacin/Dextrose (Levaquin In D5w 250 Mg/50 Ml) 50 mls @ 50 mls/hr IV Q24H JAMIE Pantoprazole Sodium 40 mg/ (Sodium Chloride) 10 mls @ 200 mls/hr IV Q24H JAMIE Pantoprazole Sodium 40 mg/ (Sodium Chloride) 10 mls @ 200 mls/hr IV Q24H [facility] Last Admin: 05/11/21 09:18 Dose: 200 mls/hr Documented by: Levofloxacin/Dextrose (Levaquin In D5w 500 Mg/100 Ml) 50 mls @ 50 mls/hr IV Q24H [facility] Last Admin: 05/11/21 09:19 Dose: 50 mls/hr Documented by: Iopamidol (Iopamidol 755 Mg/Ml 500 Ml Multipack Bottle) 100 ml IVPUSH ONETIME STA Stop: 05/10/21 16:02 Last Admin: 05/10/21 16:03 Dose: 100 ml Documented by: Methylprednisolone Sodium Succinate (Methylprednisolone Sodium Succinate 125 Mg/2 Ml Sdv) 125 mg IVPUSH ONETIME ONE Stop: 05/10/21 10:48 Last Admin: 05/10/21 10:59 Dose: 125 mg Documented by: Methylprednisolone Sodium Succinate (Methylprednisolone Sodium Succinate 125 Mg/2 Ml Sdv) 125 mg IVPUSH Q8H [facility] Last Admin: 05/11/21 09:18 Dose: 125 mg Documented by: Nicotine (Nicotine 21 Mg/24 Hr Patch) 21 mg TRDERM DAILY PRN PRN Reason: Other Ondansetron HCl (Ondansetron 4 Mg/2 Ml Sdv) 4 mg IVPUSH Q4H PRN PRN Reason: Nausea Pantoprazole Sodium (Pantoprazole 40 Mg Vial) 40 mg IV DAILY JAMIE Pantoprazole Sodium (Pantoprazole 40 Mg Vial) Confirm Administered Dose 40 mg .[facility]TE [facility] ONE Stop: 05/11/21 08:20 Last Admin: 05/11/21 09:19 Dose: Not Given Documented by: Polyethylene Glycol (Polyethylene Glycol 3350 Powder 17 Gm Packet) 17 gm PO DAILY PRN PRN Reason: Constipation Sodium Chloride (Sodium Chloride 0.9% 10 Ml Syringe) 10 ml FLUSH ASDIRECTED PRN PRN Reason: Keep Vein Open Last Admin: 05/10/21 10:59 Dose: 10 ml Documented by: Sodium Chloride (Sodium Chloride 0.9% 2.5 Ml Syringe) 2.5 ml FLUSH ASDIRECTED PRN PRN Reason: Keep Vein Open Last Admin: 05/10/21 10:58 Dose: 2.5 ml Documented by: - Free Text/Narrative Note: I have seen and examined the patient. I have discussed findings and treatment plan with the resident. I agree with the assessment and plan outlined in the following note. Due to the patient's persistent hypoxia and severe COPD I recommended staying another day to ensure resolution of symptoms but patient refused. I recommend if patient is reluctant in seeking medical care in the hospital he can consider home health or hospice programs.
[2021-05-11 08:07] LABS: BLOOD UREA NITROGEN,BUN 21 mg/dL (7.0-18.0); CARBON DIOXIDE,CO2 33.3 mmol/L (21.0-32.0); CHLORIDE,CL 102 mmol/L (98-107); GLUCOSE RANDOM 178 mg/dL (74-106); POTASSIUM,K 4.7 mmol/L (3.5-5.1); SODIUM,NA 139 mmol/L (136-148)
[2021-05-11] MEDS ORDERED: Pantoprazole 40 MG Vial ONE (08:19)
[2021-05-11] MEDS ORDERED: Levofloxacin/Dextrose 5%-Water 50 ML IV SCH ×2 (08:45→09:00)
[2021-05-11] MEDS ORDERED: Pantoprazole 40 MG in Sodium Chloride 0.9% 10 ML IV SCH ×2 (08:45→09:00)
[2021-05-11] MEDS ORDERED: Levofloxacin/Dextrose 5%-Water 500 MG in Premix Bag 1 BAG IV SCH (09:00)
[2021-05-11] MEDS ORDERED: Pantoprazole 40 MG Vial IV SCH (09:00)
[2021-05-11] MEDS ORDERED: Nicotine 21 MG/24 Hr Patch TRDERM PRN (09:00)
[2021-05-11 12:44] VITALS: BP 112/57; PULSE 68
[2021-05-12] MEDS ORDERED: Pantoprazole 40 MG in Sodium Chloride 0.9% 10 ML IV SCH (08:45)
== END 2021-05-11 13:20 | disposition home health service (06) | DRG 191 ==
LOC: MW.ED 10:31 → MW.MS 14:54
PROVIDERS: ADMIT Internal Medicine; ATTEND Internal Medicine
DX: J44.9 Chronic obstructive pulmonary disease, unspecified (principal); J44.1 Chronic obstructive pulmonary disease with (acute) exacerbation; J90 Pleural effusion, not elsewhere classified; Z66 Do not resuscitate; F17.210 Nicotine dependence, cigarettes, uncomplicated; E86.0 Dehydration; J00 Acute nasopharyngitis [common cold]; F17.200 Nicotine dependence, unspecified, uncomplicated; R91.8 Other nonspecific abnormal finding of lung field; I25.10 Atherosclerotic heart disease of native coronary artery without angina pectoris; Z20.822 Contact with and (suspected) exposure to COVID-19; E78.5 Hyperlipidemia, unspecified; H91.90 Unspecified hearing loss, unspecified ear; K21.9 Gastro-esophageal reflux disease without esophagitis; R29.810 Facial weakness; E78.00 Pure hypercholesterolemia, unspecified; M19.90 Unspecified osteoarthritis, unspecified site; G43.909 Migraine, unspecified, not intractable, without status migrainosus; Z95.1 Presence of aortocoronary bypass graft; Z88.0 Allergy status to penicillin; Z98.49 Cataract extraction status, unspecified eye; Z79.82 Long term (current) use of aspirin; Z79.899 Other long term (current) drug therapy
CPT/HCPCS: 36415; 70450; 71045; 71275; 80053; 81003; 83605; 83880; 84484; 85025; 85610; 87040 ×2; 87086; 93005; J1956; J2930; U0002; 85027; 96374; 96375; 99285-25; C9113; J1650; J7620-GY; Q9967

== ENCOUNTER 2021-07-25 14:09 | Emergency (ER) | payer MEDICARE, BC ==
[2021-07-25] MEDS ORDERED: Morphine 4 MG/ML VIAL IM ONE (15:11)
[2021-07-25 17:48] VITALS: BP 123/63; PULSE 72
== END 2021-07-25 17:44 | disposition home or self-care (01) ==
LOC: MW.ED 14:09
DX: S22.089A Unspecified fracture of T11-T12 vertebra, initial encounter for closed fracture (principal); I25.10 Atherosclerotic heart disease of native coronary artery without angina pectoris; J44.9 Chronic obstructive pulmonary disease, unspecified; Z88.0 Allergy status to penicillin; Z79.899 Other long term (current) drug therapy; W18.30XA Fall on same level, unspecified, initial encounter; Y92.009 Unspecified place in unspecified non-institutional (private) residence as the place of occurrence of the external cause
CPT/HCPCS: 72100; 72131; 96372; 99283; J2270